=== PATIENT | female | born 1955 | race Caucasian/White ===

== ENCOUNTER 2021-10-15 01:45 | Outpatient (RCR) | payer MEDICARE, SELFPAY ==
[2021-10-15 10:08] LABS: HCT 30.3 % (36.0-46.0); HGB 9.7 g/dL (11.2-15.7); MCH 29.6 pg (27.0-33.0); MCV 92.4 fL (80-95); MPV 9.8 fL (8.0-11.0); Nucleated RBC 0 %; Platelet Count 558 10^3/uL (130-400); RBC 3.28 10^6/uL (3.93-5.22); RDW 14.3 % (11.7-14.6); RDW-SD 45.1 fL; WBC 13.33 10^3/uL (4.4-10.8)
[2021-10-15 10:29] LABS: ALT 19 U/L (14-59); AST 18 U/L (15-37); Albumin 3.5 g/dL (3.4-5.0); Alkaline Phosphatase 95 U/L (46-116); Anion Gap 10.1 mmol/L (3-11); BUN 30 mg/dL (7-18); Bilirubin, Total 0.2 mg/dL (0.2-1.0); CO2 24.9 mmol/L (21.0-32.0); CREATININE 1.5 mg/dL (0.55-1.02); Calcium 8.9 mg/dL (8.5-10.1); Chloride 101 mmol/L (98-107); Estimated GFR 34.64 (mL/min/1.73m2); FREE T4 1.02 ng/dL (0.76-1.46); Glucose 89 mg/dL (74-106); Potassium 4.7 mmol/L (3.5-5.1); Sodium 136 mmol/L (136-145); TSH 4.94 uIU/mL (0.36-3.74); Total Protein 7.3 g/dL (6.4-8.2)
[2021-10-15] MEDS: Normal Saline Flush 10 ML SYR IVP (10:30)
[2021-10-15 10:42] LABS: Absolute Eosinophil Count 0.27 10^3/uL (0.0-0.7); Absolute Lymphocyte Count 2.53 10^3/uL (1.2-3.4); Absolute Monocyte Count 1.47 10^3/uL (0.1-0.8); Absolute Neutrophil Count 8.66 10^3/uL (1.2-6.7); Bands % 5
[2021-10-15 10:43] LABS: Diff Comment Manual Differential; Metamyelocytes % 3; RBC Morphology Normal
== END 2021-10-23 23:59 | disposition home or self-care (01) ==
LOC: INF 01:45
PROVIDERS: Nurse Practitioner Family; PCP Family Medicine; Visit Provider Internal Medicine Hematology & Oncology
DX: C76.0 Malignant neoplasm of head, face and neck (principal); Z45.2 Encounter for adjustment and management of vascular access device
CPT/HCPCS: 36591; 80053; 84439; 84443; 85025

== ENCOUNTER 2021-11-21 00:30 | Outpatient (CLI) | payer MEDICARE, SELFPAY ==
--- NOTE | 2021-11-21 | DI.CT_ITS ---
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 Oropharynx: Uvula is midline. No obvious asymmetric mass. Hypopharynx: Valleculae and free edge epiglottis appear unremarkable as do the aryepiglottic folds. Supraglottic airway is narrowed but this may be due to the patient's holding her breath, as opposed t o true pathology. Larynx: Vocal cords appear unremarkable. Subglottic airway unremarkable. Thyroid gland: Unremarkable. Salivary glands: Parotid and submandibular glands appear unremarkable. Lymph nodes: No significant adenopathy in the right-side of the neck and supraclavicular region. Rig ht internal jugular vein is patent. 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 Hypod ensity medial to the left sternocleidomastoid muscle consistent with enlarged lymph nodes. Osseous: No osseous lesions. Multilevel degenerative disc disease in the lower cervical spine and re versal of the normal curvature. No facet malalignment. CT SCAN CHEST WITH IV CONTRAST: Lungs: Severe bilateral emphysematous changes again noted. Small nodular infiltrate in the right upp er lobe has slightly decreased in size. However, there is now patchy infiltrate in the right middle lobe, not previously present as well as in the basal segments of the right lower lobe, also not previ ously present and not associated with pleural effusions. Mild infiltrate in the superior segment of the left lower lobe is unchanged. Mild infiltrate in the anterior basal segment of the left lower lo be is seen, not previously present. There are no pleural effusions on either side. No significant f ocal findings in the trachea and mainstem bronchi. Mediastinum: Thyroid gland unremarkable. No hilar adenopathy. No mediastinal adenopathy. No subcar inal adenopathy. No axillary adenopathy. No supraclavicular adenopathy. Cardiac: Heart size is normal. No pericardial effusion. Caliber thoracic aorta is within normal hastings its. However, the lower most images of this study reveal heavy calcification in the upper abdominal aorta as well as the branches. Other: No adrenal masses. Osseous: No lytic osseous lesions identified. No fractures. IMPRESSION: 1. Compared to the prior outside chest CT scan of 06/18/2021 there is now some patchy infiltrate in t he right middle lobe and basal segments of the right lower lobe, superior segment left lower lobe and anterior basal segment of the left lower lobe, not previously present. No pleural effusions. There is no intrathoracic adenopathy. Recommend Covid-19 testing. 2. There is no intrathoracic adenopathy. 3. 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 No significant right-sided neck findings. 4.
[2021-11-21] MEDS: Omnipaque 350 MG/ML 100 ML BTL IJ (13:00)
[2021-11-21] MEDS: Normal Saline Flush 10 ML SYR IVP (13:01)
== END 2021-11-21 00:50 ==
PROVIDERS: PCP Family Medicine; Visit Provider Internal Medicine Hematology & Oncology
DX: C76.0 Malignant neoplasm of head, face and neck (principal); R91.8 Other nonspecific abnormal finding of lung field; R59.0 Localized enlarged lymph nodes
CPT/HCPCS: 70491; 71260; J3490

== ENCOUNTER 2021-11-21 00:36 | Outpatient (RCR) | payer MEDICARE, SELFPAY ==
[2021-11-05] MEDS: Normal Saline Flush 10 ML SYR IVP (08:48)
[2021-11-05 09:06] LABS: HCT 29.9 % (36.0-46.0); HGB 9.8 g/dL (11.2-15.7); MCH 29.8 pg (27.0-33.0); MCHC 32.8 % (32.0-36.0); MCV 90.9 fL (80-95); MPV 9.3 fL (8.0-11.0); Platelet Count 379 10^3/uL (130-400); RBC 3.29 10^6/uL (3.93-5.22); RDW 15.9 % (11.7-14.6); RDW-SD 51.2 fL
[2021-11-05 09:19] LABS: ALT 26 U/L (14-59); AST 16 U/L (15-37); Albumin 3.1 g/dL (3.4-5.0); Alkaline Phosphatase 145 U/L (46-116); Anion Gap 10.1 mmol/L (3-11); BUN 37 mg/dL (7-18); Bilirubin, Total 0.2 mg/dL (0.2-1.0); CO2 24.9 mmol/L (21.0-32.0); CREATININE 1.8 mg/dL (0.55-1.02); Calcium 8.9 mg/dL (8.5-10.1); Chloride 98 mmol/L (98-107); Estimated GFR 28.07 (mL/min/1.73m2); Glucose 92 mg/dL (74-106); Potassium 4.9 mmol/L (3.5-5.1); Sodium 133 mmol/L (136-145); Total Protein 7.5 g/dL (6.4-8.2)
[2021-11-05 09:27] LABS: FREE T4 1.46 ng/dL (0.76-1.46); TSH 3.48 uIU/mL (0.36-3.74)
[2021-11-05 09:48] LABS: Absolute Lymphocyte Count 3.45 10^3/uL (1.2-3.4); Absolute Monocyte Count 0.94 10^3/uL (0.1-0.8); Absolute Neutrophil Count 10.05 10^3/uL (1.2-6.7); Atypical Lymphocytes % 6; Bands % 3
[2021-11-05 09:49] LABS: Absolute Basophil Count 0.16 10^3/uL (0.0-0.2); Absolute Eosinophil Count 0.79 10^3/uL (0.0-0.7); Diff Comment Manual Differential; Metamyelocytes % 1; Myelocytes % 1; Nucleated RBC 1 %; RBC Morphology Normal
[2021-11-21 12:17] LABS: Abs Immature Grans 0.33 10^3/uL (0.0-0.06); Absolute Basophil Count 0.04 10^3/uL (0.0-0.2); Absolute Eosinophil Count 0.01 10^3/uL (0.0-0.7); Absolute Lymphocyte Count 1.47 10^3/uL (1.2-3.4); Absolute Monocyte Count 0.63 10^3/uL (0.1-0.8); Absolute Neutrophil Count 10.19 10^3/uL (1.2-6.7); Basophils % 0.3; Eosinophils % 0.1; HCT 26.1 % (36.0-46.0); HGB 8.3 g/dL (11.2-15.7); Immature Grans % 2.6; Lymphocytes % 11.6; MCH 30.5 pg (27.0-33.0); MCHC 31.8 % (32.0-36.0); MPV 10.9 fL (8.0-11.0); Neutrophils % 80.4; Nucleated RBC 0 %; Platelet Count 102 10^3/uL (130-400); RBC 2.72 10^6/uL (3.93-5.22); RDW 18.1 % (11.7-14.6); RDW-SD 60.1 fL; WBC 12.68 10^3/uL (4.4-10.8)
[2021-11-21] MEDS: Heparin 500 UNITS/5 ML SYRINGE IV (12:20)
[2021-11-21] MEDS: Normal Saline Flush 10 ML SYR IVP (12:20)
[2021-11-21 12:29] LABS: ALT 19 U/L (14-59); AST 16 U/L (15-37); Albumin 3.2 g/dL (3.4-5.0); Alkaline Phosphatase 151 U/L (46-116); Anion Gap 11.6 mmol/L (3-11); BUN 28 mg/dL (7-18); Bilirubin, Total 0.3 mg/dL (0.2-1.0); CO2 24.4 mmol/L (21.0-32.0); CREATININE 1.5 mg/dL (0.55-1.02); Chloride 98 mmol/L (98-107); Estimated GFR 34.64 (mL/min/1.73m2); Glucose 140 mg/dL (74-106); Potassium 4.5 mmol/L (3.5-5.1); Sodium 134 mmol/L (136-145); Total Protein 7.8 g/dL (6.4-8.2)
== END 2021-11-23 23:59 | disposition home or self-care (01) ==
LOC: INF 00:36
PROVIDERS: Nurse Practitioner Family; PCP Family Medicine; Visit Provider Internal Medicine Hematology & Oncology
DX: C76.0 Malignant neoplasm of head, face and neck (principal); Z45.2 Encounter for adjustment and management of vascular access device; Z79.899 Other long term (current) drug therapy
CPT/HCPCS: 36591; 80053; 84439; 84443; 85025

== ENCOUNTER 2021-11-26 10:45 | Outpatient (CLI) | payer MEDICARE, SELFPAY | END 2021-11-26 10:46 | disposition home or self-care (01) | LOC: LBO 10:45 | PROVIDERS: PCP Family Medicine; Visit Provider Internal Medicine Hematology & Oncology ==

== ENCOUNTER 2021-12-10 00:58 | Outpatient (RCR) | payer MEDICARE, SELFPAY ==
[2021-12-10 08:34] LABS: Abs Immature Grans 0.03 10^3/uL (0.0-0.06); Absolute Basophil Count 0.06 10^3/uL (0.0-0.2); Absolute Eosinophil Count 0.54 10^3/uL (0.0-0.7); Absolute Lymphocyte Count 2.96 10^3/uL (1.2-3.4); Absolute Monocyte Count 0.83 10^3/uL (0.1-0.8); Absolute Neutrophil Count 5.66 10^3/uL (1.2-6.7); Basophils % 0.6; Eosinophils % 5.4; HCT 32.2 % (36.0-46.0); HGB 10.1 g/dL (11.2-15.7); Immature Grans % 0.3; Lymphocytes % 29.4; MCH 30.4 pg (27.0-33.0); MCHC 31.4 % (32.0-36.0); MPV 9.2 fL (8.0-11.0); Monocytes % 8.2; Neutrophils % 56.1; Nucleated RBC 0 %; Platelet Count 280 10^3/uL (130-400); RBC 3.32 10^6/uL (3.93-5.22); RDW 17.6 % (11.7-14.6); RDW-SD 63.3 fL; WBC 10.08 10^3/uL (4.4-10.8)
[2021-12-10] MEDS: Normal Saline Flush 10 ML SYR IVP (08:35)
[2021-12-10 08:56] LABS: ALT 14 U/L (14-59); AST 22 U/L (15-37); Albumin 3.5 g/dL (3.4-5.0); Alkaline Phosphatase 98 U/L (46-116); Anion Gap 10.8 mmol/L (3-11); BUN 25 mg/dL (7-18); Bilirubin, Total 0.5 mg/dL (0.2-1.0); CO2 23.2 mmol/L (21.0-32.0); CREATININE 1.4 mg/dL (0.55-1.02); Calcium 9.1 mg/dL (8.5-10.1); Chloride 101 mmol/L (98-107); Estimated GFR 37.51 (mL/min/1.73m2); FREE T4 1.01 ng/dL (0.76-1.46); Glucose 123 mg/dL (74-106); Potassium 4.2 mmol/L (3.5-5.1); Sodium 135 mmol/L (136-145); TSH 3.22 uIU/mL (0.36-3.74)
== END 2021-12-24 23:59 | disposition home or self-care (01) ==
LOC: INF 00:58
PROVIDERS: PCP Family Medicine; Visit Provider Internal Medicine Hematology & Oncology
DX: C76.0 Malignant neoplasm of head, face and neck (principal); Z45.2 Encounter for adjustment and management of vascular access device
CPT/HCPCS: 36591; 80053; 84439; 84443; 85025

== ENCOUNTER 2022-01-21 01:22 | Outpatient (RCR) | payer MEDICARE, SELFPAY ==
[2021-12-31 08:56] LABS: Abs Immature Grans 0.09 10^3/uL (0.0-0.06); Absolute Basophil Count 0.05 10^3/uL (0.0-0.2); Absolute Eosinophil Count 0.15 10^3/uL (0.0-0.7); Absolute Lymphocyte Count 3.12 10^3/uL (1.2-3.4); Absolute Neutrophil Count 3.62 10^3/uL (1.2-6.7); Basophils % 0.6; Eosinophils % 1.9; HCT 29.7 % (36.0-46.0); HGB 9.4 g/dL (11.2-15.7); Immature Grans % 1.1; Lymphocytes % 39.3; MCH 31.6 pg (27.0-33.0); MCHC 31.6 % (32.0-36.0); MPV 9.8 fL (8.0-11.0); Monocytes % 11.3; Neutrophils % 45.8; Nucleated RBC 0 %; Platelet Count 203 10^3/uL (130-400); RBC 2.97 10^6/uL (3.93-5.22); RDW-SD 65.9 fL; WBC 7.93 10^3/uL (4.4-10.8)
[2021-12-31] MEDS: Normal Saline Flush 10 ML SYR IVP (09:01)
[2021-12-31 09:15] LABS: ALT 16 U/L (14-59); AST 18 U/L (15-37); Albumin 3.6 g/dL (3.4-5.0); Alkaline Phosphatase 94 U/L (46-116); Anion Gap 7.3 mmol/L (3-11); BUN 21 mg/dL (7-18); Bilirubin, Total 0.2 mg/dL (0.2-1.0); CO2 26.7 mmol/L (21.0-32.0); CREATININE 1.4 mg/dL (0.55-1.02); Chloride 102 mmol/L (98-107); Estimated GFR 37.51 (mL/min/1.73m2); FREE T4 1.04 ng/dL (0.76-1.46); Glucose 105 mg/dL (74-106); Potassium 4.7 mmol/L (3.5-5.1); Sodium 136 mmol/L (136-145); TSH 2.05 uIU/mL (0.36-3.74); Total Protein 7.4 g/dL (6.4-8.2)
[2022-01-21] MEDS: Normal Saline Flush 10 ML SYR IVP (11:02)
[2022-01-21 11:09] LABS: Abs Immature Grans 0.05 10^3/uL (0.0-0.06); Absolute Basophil Count 0.06 10^3/uL (0.0-0.2); Absolute Eosinophil Count 0.04 10^3/uL (0.0-0.7); Absolute Lymphocyte Count 2.53 10^3/uL (1.2-3.4); Absolute Neutrophil Count 4.48 10^3/uL (1.2-6.7); Basophils % 0.8; Eosinophils % 0.5; HCT 32.3 % (36.0-46.0); HGB 10.5 g/dL (11.2-15.7); Immature Grans % 0.6; Lymphocytes % 32.6; MCH 33.1 pg (27.0-33.0); MCHC 32.5 % (32.0-36.0); MCV 101.9 fL (80-95); MPV 10.1 fL (8.0-11.0); Monocytes % 7.7; Neutrophils % 57.8; Nucleated RBC 0 %; Platelet Count 200 10^3/uL (130-400); RBC 3.17 10^6/uL (3.93-5.22); RDW 16.8 % (11.7-14.6); RDW-SD 63.5 fL; WBC 7.76 10^3/uL (4.4-10.8)
[2022-01-21 11:30] LABS: ALT 19 U/L (14-59); AST 21 U/L (15-37); Albumin 3.9 g/dL (3.4-5.0); Alkaline Phosphatase 107 U/L (46-116); Anion Gap 10.8 mmol/L (3-11); BUN 31 mg/dL (7-18); Bilirubin, Total 0.3 mg/dL (0.2-1.0); CO2 23.2 mmol/L (21.0-32.0); CREATININE 1.4 mg/dL (0.55-1.02); Calcium 9.1 mg/dL (8.5-10.1); Chloride 102 mmol/L (98-107); Estimated GFR 37.51 (mL/min/1.73m2); FREE T4 0.95 ng/dL (0.76-1.46); Glucose 117 mg/dL (74-106); Potassium 4.2 mmol/L (3.5-5.1); Sodium 136 mmol/L (136-145); TSH 1.92 uIU/mL (0.36-3.74); Total Protein 7.8 g/dL (6.4-8.2)
== END 2022-01-21 23:59 | disposition home or self-care (01) ==
LOC: INF 01:22
PROVIDERS: PCP Family Medicine; Visit Provider Internal Medicine Hematology & Oncology
DX: C76.0 Malignant neoplasm of head, face and neck (principal); Z45.2 Encounter for adjustment and management of vascular access device
CPT/HCPCS: 36591; 80053; 84439; 84443; 85025

== ENCOUNTER 2022-03-08 00:40 | Outpatient (RCR) | payer MEDICARE, SELFPAY ==
[2022-02-27] MEDS: Heparin 500 UNITS/5 ML SYRINGE (13:49)
[2022-02-27] MEDS: Normal Saline Flush 10 ML SYR IVP (13:50)
[2022-02-27 13:59] LABS: CREATININE 1.5 mg/dL (0.55-1.02); Estimated GFR 34.64 (mL/min/1.73m2)
[2022-03-08] MEDS: Normal Saline Flush 10 ML SYR IVP (13:36)
[2022-03-08 13:52] LABS: Abs Immature Grans 0.02 10^3/uL (0.0-0.06); Absolute Basophil Count 0.05 10^3/uL (0.0-0.2); Absolute Eosinophil Count 0.47 10^3/uL (0.0-0.7); Absolute Lymphocyte Count 3.07 10^3/uL (1.2-3.4); Absolute Monocyte Count 0.57 10^3/uL (0.1-0.8); Absolute Neutrophil Count 3.79 10^3/uL (1.2-6.7); Basophils % 0.6; Eosinophils % 5.9; HCT 33.8 % (36.0-46.0); HGB 10.8 g/dL (11.2-15.7); Immature Grans % 0.3; Lymphocytes % 38.5; MCH 33.3 pg (27.0-33.0); MCV 104.3 fL (80-95); MPV 9.9 fL (8.0-11.0); Monocytes % 7.2; Neutrophils % 47.5; Platelet Count 132 10^3/uL (130-400); RBC 3.24 10^6/uL (3.93-5.22); RDW 14.1 % (11.7-14.6); RDW-SD 54.3 fL; WBC 7.97 10^3/uL (4.4-10.8)
[2022-03-08 14:16] LABS: ALT 14 U/L (14-59); AST 19 U/L (15-37); Albumin 3.5 g/dL (3.4-5.0); Alkaline Phosphatase 88 U/L (46-116); Anion Gap 9.3 mmol/L (3-11); BUN 43 mg/dL (7-18); Bilirubin, Total 0.2 mg/dL (0.2-1.0); CO2 24.7 mmol/L (21.0-32.0); CREATININE 1.9 mg/dL (0.55-1.02); Calcium 8.4 mg/dL (8.5-10.1); Chloride 105 mmol/L (98-107); Estimated GFR 26.37 (mL/min/1.73m2); FREE T4 0.78 ng/dL (0.76-1.46); Glucose 106 mg/dL (74-106); Potassium 4.6 mmol/L (3.5-5.1); Sodium 139 mmol/L (136-145); TSH 1.79 uIU/mL (0.36-3.74); Total Protein 7.2 g/dL (6.4-8.2)
== END 2022-03-23 23:59 | disposition home or self-care (01) ==
LOC: INF 00:40
PROVIDERS: PCP Family Medicine; Visit Provider Internal Medicine Hematology & Oncology
DX: C76.0 Malignant neoplasm of head, face and neck (principal); Z45.2 Encounter for adjustment and management of vascular access device
CPT/HCPCS: 36591; 80053; 82565; 84439; 84443; 85025

== ENCOUNTER 2022-04-19 01:17 | Outpatient (RCR) | payer MEDICARE, SELFPAY ==
[2022-04-02] MEDS: Normal Saline Flush 10 ML SYR IVP (08:25)
[2022-04-02 08:38] LABS: Abs Immature Grans 0.01 10^3/uL (0.0-0.06); Absolute Basophil Count 0.02 10^3/uL (0.0-0.2); Absolute Lymphocyte Count 1.68 10^3/uL (1.2-3.4); Absolute Monocyte Count 0.52 10^3/uL (0.1-0.8); Absolute Neutrophil Count 1.55 10^3/uL (1.2-6.7); Basophils % 0.5; Eosinophils % 2.6; HCT 31.6 % (36.0-46.0); HGB 10.6 g/dL (11.2-15.7); Immature Grans % 0.3; Lymphocytes % 43.3; MCHC 33.5 % (32.0-36.0); MCV 101 fL (80-95); MPV 10.3 fL (8.0-11.0); Monocytes % 13.4; Neutrophils % 39.9; RBC 3.12 10^6/uL (3.93-5.22); RDW 13.2 % (11.7-14.6); WBC 3.88 10^3/uL (4.4-10.8)
[2022-04-02 09:01] LABS: ALT 17 U/L (14-59); AST 16 U/L (15-37); Albumin 3.9 g/dL (3.4-5.0); Alkaline Phosphatase 78 U/L (46-116); Anion Gap 10.1 mmol/L (3-11); BUN 26 mg/dL (7-18); Bilirubin, Total 0.4 mg/dL (0.2-1.0); CO2 23.9 mmol/L (21.0-32.0); CREATININE 1.3 mg/dL (0.55-1.02); Calcium 8.7 mg/dL (8.5-10.1); Chloride 102 mmol/L (98-107); Estimated GFR 40.86 (mL/min/1.73m2); Glucose 105 mg/dL (74-106); Potassium 4.2 mmol/L (3.5-5.1); Sodium 136 mmol/L (136-145); Total Protein 7.7 g/dL (6.4-8.2)
[2022-04-02 09:10] LABS: Platelet Count 53 10^3/uL (130-400)
[2022-04-08] MEDS: Normal Saline Flush 10 ML SYR IVP (08:20)
[2022-04-08 08:31] LABS: Abs Immature Grans 0.05 10^3/uL (0.0-0.06); Absolute Basophil Count 0.01 10^3/uL (0.0-0.2); Absolute Eosinophil Count 0.09 10^3/uL (0.0-0.7); Absolute Lymphocyte Count 1.63 10^3/uL (1.2-3.4); Absolute Monocyte Count 0.82 10^3/uL (0.1-0.8); Absolute Neutrophil Count 2.65 10^3/uL (1.2-6.7); Basophils % 0.2; Eosinophils % 1.7; HCT 30.6 % (36.0-46.0); HGB 10.3 g/dL (11.2-15.7); MCH 34.1 pg (27.0-33.0); MCHC 33.7 % (32.0-36.0); MCV 101 fL (80-95); MPV 10.3 fL (8.0-11.0); Monocytes % 15.6; Neutrophils % 50.5; Platelet Count 117 10^3/uL (130-400); RBC 3.02 10^6/uL (3.93-5.22); RDW 13.6 % (11.7-14.6); RDW-SD 50.7 fL; WBC 5.25 10^3/uL (4.4-10.8)
[2022-04-08 08:40] LABS: ALT 20 U/L (14-59); AST 17 U/L (15-37); Albumin 3.7 g/dL (3.4-5.0); Alkaline Phosphatase 78 U/L (46-116); Anion Gap 6.8 mmol/L (3-11); BUN 26 mg/dL (7-18); Bilirubin, Total 0.3 mg/dL (0.2-1.0); CO2 27.2 mmol/L (21.0-32.0); CREATININE 1.4 mg/dL (0.55-1.02); Calcium 8.7 mg/dL (8.5-10.1); Chloride 101 mmol/L (98-107); Estimated GFR 37.51 (mL/min/1.73m2); Glucose 110 mg/dL (74-106); Potassium 4.5 mmol/L (3.5-5.1); Sodium 135 mmol/L (136-145); Total Protein 7.4 g/dL (6.4-8.2)
== END 2022-04-23 23:59 | disposition home or self-care (01) ==
LOC: INF 01:17
PROVIDERS: PCP Family Medicine; Visit Provider Internal Medicine Hematology & Oncology
DX: C76.0 Malignant neoplasm of head, face and neck (principal); Z45.2 Encounter for adjustment and management of vascular access device
CPT/HCPCS: 36591; 80053; 85025

== ENCOUNTER 2022-05-06 03:01 | Outpatient (RCR) | payer MEDICARE, SELFPAY ==
[2022-04-29 11:07] LABS: Abs Immature Grans 0.04 10^3/uL (0.0-0.06); Absolute Basophil Count 0.01 10^3/uL (0.0-0.2); Absolute Eosinophil Count 0.04 10^3/uL (0.0-0.7); Absolute Lymphocyte Count 0.89 10^3/uL (1.2-3.4); Basophils % 0.3; Eosinophils % 1.1; HCT 28.5 % (36.0-46.0); HGB 9.7 g/dL (11.2-15.7); Immature Grans % 1.1; Lymphocytes % 23.5; MCH 33.7 pg (27.0-33.0); MCV 99 fL (80-95); MPV 11.4 fL (8.0-11.0); Monocytes % 15.9; Neutrophils % 58.1; RBC 2.88 10^6/uL (3.93-5.22); RDW 14.6 % (11.7-14.6); WBC 3.78 10^3/uL (4.4-10.8)
[2022-04-29] MEDS: Normal Saline Flush 10 ML SYR IVP (11:14)
[2022-04-29 11:16] LABS: Platelet Count 59 10^3/uL (130-400)
[2022-04-29 11:25] LABS: ALT 16 U/L (14-59); AST 20 U/L (15-37); Alkaline Phosphatase 102 U/L (46-116); Anion Gap 9.2 mmol/L (3-11); BUN 22 mg/dL (7-18); Bilirubin, Total 0.5 mg/dL (0.2-1.0); CO2 32.8 mmol/L (21.0-32.0); CREATININE 1.2 mg/dL (0.55-1.02); Calcium 9.2 mg/dL (8.5-10.1); Chloride 96 mmol/L (98-107); Estimated GFR 44.81 (mL/min/1.73m2); Glucose 107 mg/dL (74-106); Sodium 138 mmol/L (136-145); Total Protein 7.9 g/dL (6.4-8.2)
[2022-04-29 11:36] LABS: Potassium 2.7 mmol/L (3.5-5.1)
[2022-05-06 10:19] LABS: Abs Immature Grans 0.02 10^3/uL (0.0-0.06); Absolute Basophil Count 0.02 10^3/uL (0.0-0.2); Absolute Lymphocyte Count 0.95 10^3/uL (1.2-3.4); Absolute Monocyte Count 0.57 10^3/uL (0.1-0.8); Absolute Neutrophil Count 2.51 10^3/uL (1.2-6.7); Basophils % 0.5; HCT 29.5 % (36.0-46.0); HGB 10.1 g/dL (11.2-15.7); Immature Grans % 0.5; Lymphocytes % 23.3; MCH 34.4 pg (27.0-33.0); MCHC 34.2 % (32.0-36.0); MCV 100 fL (80-95); MPV 10.3 fL (8.0-11.0); Neutrophils % 61.7; RBC 2.94 10^6/uL (3.93-5.22); RDW 16.2 % (11.7-14.6); RDW-SD 57.9 fL; WBC 4.07 10^3/uL (4.4-10.8)
[2022-05-06] MEDS: Heparin 500 UNITS/5 ML SYRINGE IV (10:24)
[2022-05-06] MEDS: Normal Saline Flush 10 ML SYR IVP (10:24)
[2022-05-06 10:34] LABS: ALT 19 U/L (14-59); AST 23 U/L (15-37); Alkaline Phosphatase 98 U/L (46-116); Anion Gap 7.5 mmol/L (3-11); BUN 25 mg/dL (7-18); Bilirubin, Total 0.5 mg/dL (0.2-1.0); CO2 32.5 mmol/L (21.0-32.0); CREATININE 1.2 mg/dL (0.55-1.02); Calcium 9.4 mg/dL (8.5-10.1); Chloride 98 mmol/L (98-107); Estimated GFR 44.68 (mL/min/1.73m2); Glucose 102 mg/dL (74-106); Sodium 138 mmol/L (136-145); Total Protein 7.7 g/dL (6.4-8.2)
[2022-05-06 10:38] LABS: Platelet Count 97 10^3/uL (130-400)
[2022-05-06 10:46] LABS: Potassium 2.9 mmol/L (3.5-5.1)
== END 2022-05-23 23:59 | disposition home or self-care (01) ==
LOC: INF 03:01
PROVIDERS: PCP Family Medicine; Visit Provider Internal Medicine Hematology & Oncology
DX: C76.0 Malignant neoplasm of head, face and neck (principal); Z45.2 Encounter for adjustment and management of vascular access device
CPT/HCPCS: 36591; 80053; 85025

== ENCOUNTER 2022-07-17 08:55 | Outpatient (RCR) | payer MEDICARE, SELFPAY ==
[2022-07-17] MEDS: Normal Saline Flush 10 ML SYR IVP (09:12)
[2022-07-17] MEDS: Heparin 500 UNITS/5 ML SYRINGE IVP (09:13)
== END 2022-07-24 23:59 | disposition home or self-care (01) ==
LOC: INF 08:55
PROVIDERS: PCP Family Medicine; Visit Provider Internal Medicine Hematology & Oncology
DX: Z45.2 Encounter for adjustment and management of vascular access device (principal)
CPT/HCPCS: 96523

== ENCOUNTER 2022-09-11 07:11 | Outpatient (RCR) | payer MEDICARE, SELFPAY ==
[2022-09-11] MEDS: Normal Saline Flush 10 ML SYR IVP (07:24)
[2022-09-11] MEDS: Heparin 500 UNITS/5 ML SYRINGE IVP (07:25)
[2022-09-11 07:40] LABS: CREATININE 2.2 mg/dL (0.55-1.02); Estimated GFR 23.82 (mL/min/1.73m2)
== END 2022-09-23 23:59 | disposition home or self-care (01) ==
LOC: INF 07:11
PROVIDERS: PCP Family Medicine; Visit Provider Preventive Medicine Undersea and Hyperbaric Medicine
DX: Z45.2 Encounter for adjustment and management of vascular access device (principal); C76.0 Malignant neoplasm of head, face and neck
CPT/HCPCS: 36591; 82565